=== PATIENT | male | born 1970 | race Caucasian/White ===

== ENCOUNTER 2017-02-19 11:16 | Inpatient (IN) | payer MEDICAID, OTHER ==
[~2017-02-19] VITALS: Ht 177.8 cm; Wt 95.3 kg
[2017-02-19] MEDS ORDERED: PARO10TA89 PO (11:42)
[2017-02-19] MEDS ORDERED: GABA-529 PO (11:42)
[2017-02-19] MEDS ORDERED: BUPR75 PO (11:42)
[2017-02-19] MEDS ORDERED: ARIP2 PO (11:42)
[2017-02-19 12:10] LABS: BASOPHILS # (AUTO) 0.02 K/uL (0.00-0.20); BASOPHILS % (AUTO) 0.5 % (0.0-2.0); EOSINOPHILS # (AUTO) 0.08 K/uL (0.00-0.70); EOSINOPHILS % (AUTO) 1.79 % (1.0-6.0); HEMATOCRIT 45.9 % (41-53); HEMOGLOBIN 15.6 g/dL (13.5-17.5); LYMPHOCYTES # (AUTO) 1.2 K/uL (1.0-4.8); LYMPHOCYTES % (AUTO) 26.1 % (22.0-44.0); MEAN CORPUSCULAR VOLUME 97 fL (80-100); MONOCYTES # (AUTO) 0.3 K/uL (0.1-1.0); NEUTROPHILS % (AUTO) 64.7 % (40.0-70.0); PLATELET COUNT (AUTO) 209 K/uL (150-450); RED BLOOD CELL COUNT(AUTO) 4.73 MIL/uL (4.50-5.90); RED CELL DISTRIBUTION WIDTH 14.7 % (11.5-14.5); WHITE BLOOD COUNT (AUTO) 4.6 K/uL (4.5-11.0)
[2017-02-19 12:25] LABS: ALANINE AMINOTRANSFERASE 59 U/L (12-78); ALBUMIN 4.1 g/dL (3.4-5.0); ANION GAP 13 mmol/L (8-16); ASPARTATE AMINOTRANSFERASE 46 U/L (15-37); BILIRUBIN,TOTAL 0.6 mg/dL (0.1-1.0); CALCIUM, TOTAL 9.3 mg/dL (8.8-10.5); CARBON DIOXIDE 22 mmol/L (22-29); CHLORIDE 105 mmol/L (98-107); CREATININE 1.13 mg/dL (0.60-1.30); GLOMERULAR FILTR. RATE CALC > 60 mL/min (>60); SODIUM SERUM 140 mmol/L (136-145); TOTAL PROTEIN, SERUM 8.3 g/dL (6.4-8.2); UREA NITROGEN, BLOOD 8 mg/dL (7-18)
[2017-02-19 12:28] LABS: POTASSIUM 2.7 mmol/L (3.5-5.1)
[2017-02-19] MEDS ORDERED: POTASSIUM CHLORIDE 20 MEQ ER TABLET PO ONE (12:45)
[2017-02-19] MEDS ORDERED: ZOLPIDEM TARTRATE 10 MG TABLET PO PRN (15:45)
[2017-02-19 16:09] LABS: CHOL/HDL RATIO 2.6 (4.2-7.3)
[2017-02-19] MEDS: LORazepam 2 MG TABLET PO PRN (19:49)
[2017-02-19] MEDS: HALOPERIDOL 5 MG TABLET PO PRN (19:49)
[2017-02-19 20:36] VITALS: BP 132/66
[2017-02-19] MEDS ORDERED: IBUPROFEN 600 MG TABLET PO PRN (22:15)
[2017-02-19] MEDS ORDERED: ACETAMINOPHEN 325 MG TABLET PO PRN (22:15)
[2017-02-20 08:00] VITALS: BP 113/72
[2017-02-20] MEDS ORDERED: POTASSIUM CHLORIDE 20 MEQ ER TABLET PO ONE (09:30)
[2017-02-20] MEDS ORDERED: CloNIDine HCL 0.1 MG TABLET PO PRN (09:45)
[2017-02-20 16:00] VITALS: BP 115/77
[2017-02-20] MEDS: HALOPERIDOL 5 MG TABLET PO PRN (17:44)
[2017-02-20] MEDS: LORazepam 2 MG TABLET PO PRN (17:44)
[2017-02-21 07:10] LABS: HEMOGLOBIN A1C 5.8 % (4.5-6.2)
[2017-02-21 07:12] LABS: ANION GAP 11 mmol/L (8-16); CARBON DIOXIDE 24 mmol/L (22-29); CHLORIDE 110 mmol/L (98-107); CHOL/HDL RATIO 2.9 (4.2-7.3); CREATININE 0.88 mg/dL (0.60-1.30); GLOMERULAR FILTR. RATE CALC > 60 mL/min (>60); POTASSIUM 3.5 mmol/L (3.5-5.1); SODIUM SERUM 145 mmol/L (136-145); UREA NITROGEN, BLOOD 11 mg/dL (7-18)
[2017-02-21 08:00] VITALS: BP 135/101
[2017-02-21] MEDS: BuPROPion HCL 75 MG TABLET PO SCH ×3 (08:57→16:45)
[2017-02-21] MEDS: ARIPiprazole 5 MG TABLET PO SCH (08:57)
[2017-02-21] MEDS: GABAPENTIN 100 MG CAPSULE PO SCH (08:57)
[2017-02-21] MEDS: PARoxetine HCL 10 MG TABLET PO SCH (08:58)
[2017-02-21 16:55] VITALS: BP 144/87
[2017-02-22 06:06] LABS: LYMPHS % FOR CD4 COUNT 24 %; LYMPHS ABS FOR CD4 COUNT 1.1 x10E3/uL (0.7-3.1); WBC FOR CD4 COUNT 4.4 x10E3/uL (3.4-10.8)
[2017-02-22 08:00] VITALS: BP 128/76
[2017-02-22] MEDS: BuPROPion HCL 75 MG TABLET PO SCH ×3 (08:57→17:40)
[2017-02-22] MEDS: ARIPiprazole 5 MG TABLET PO SCH (08:57)
[2017-02-22] MEDS: GABAPENTIN 100 MG CAPSULE PO SCH (08:57)
[2017-02-22] MEDS: PARoxetine HCL 10 MG TABLET PO SCH (08:57)
[2017-02-22] MEDS: LORazepam 2 MG TABLET PO PRN (09:47)
[2017-02-22 22:53] VITALS: BP 131/76
[2017-02-23] MEDS: LORazepam 2 MG TABLET PO PRN ×2 (06:41→12:19)
[2017-02-23] MEDS: ARIPiprazole 5 MG TABLET PO SCH (08:34)
[2017-02-23] MEDS: GABAPENTIN 100 MG CAPSULE PO SCH (08:34)
[2017-02-23] MEDS: PARoxetine HCL 10 MG TABLET PO SCH (08:34)
[2017-02-23] MEDS: BuPROPion HCL 75 MG TABLET PO SCH ×3 (08:34→17:12)
[2017-02-23 09:10] VITALS: BP 116/76
[2017-02-23 16:48] VITALS: BP 102/55
[2017-02-23] MEDS ORDERED: GABAPENTIN 100 MG CAPSULE PO SCH (21:00)
[2017-02-24 00:25] VITALS: BP 112/71
[2017-02-24 02:43] LABS: ABSOLUTE CD4 COUNT 296 /uL (359-1519); PERCENT CD4 CELLS 26.9 % (30.8-58.5)
[2017-02-24 06:22] LABS: HEPATITIS Bs ANTIGEN SCREEN P Negative (Negative); HEPATITIS C AB SCREEN <0.1 s/co ratio (0.0-0.9)
[2017-02-24] MEDS: LORazepam 2 MG TABLET PO PRN ×2 (06:44→11:03)
[2017-02-24] MEDS ORDERED: HYDROCORTISONE 2.5% 30 GM CREAM TP PRN (08:15)
[2017-02-24 08:16] VITALS: BP 131/81
[2017-02-24] MEDS ORDERED: ARIPiprazole 10 MG TABLET PO SCH (09:00)
[2017-02-24] MEDS ORDERED: BuPROPion HCL XL 150 MG ER TABLET PO SCH (09:00)
[2017-02-24] MEDS ORDERED: BuPROPion HCL 75 MG TABLET PO SCH (09:00)
[2017-02-24] MEDS ORDERED: ARIP10TA14 PO (11:46)
[2017-02-24] MEDS ORDERED: GABA-529 PO (11:46)
[2017-02-24] MEDS ORDERED: BUPR-93 PO (11:46)
[2017-02-24] MEDS ORDERED: PARO20TA24 PO (11:46)
[2017-02-24] MEDS ORDERED: BUPR75 PO (11:46)
[2017-02-24] MEDS ORDERED: PARoxetine HCL 20 MG TABLET PO SCH (21:00)
[2017-02-27 09:17] LABS: HIV CONFIRM? YES (NP)
[2017-03-06] MEDS ORDERED: GABAPENTIN 100 MG CAPSULE PO SCH (21:00)
[2017-03-07] MEDS ORDERED: ARIPiprazole 10 MG TABLET PO SCH (09:00)
[2017-03-07] MEDS ORDERED: BuPROPion HCL 150 MG SR TABLET PO SCH ×2 (09:00)
== END 2017-02-24 14:45 | disposition home or self-care (01) | DRG 751 ==
LOC: EEVIPCON 11:17 → EMS 11:17 → 3EI 17:14
PROVIDERS: ADMIT Psychiatry & Neurology Psychiatry; ATTEND Psychiatry & Neurology Psychiatry
DX: F29 Unspecified psychosis not due to a substance or known physiological condition (principal); R45.851 Suicidal ideations; F15.20 Other stimulant dependence, uncomplicated; I10 Essential (primary) hypertension; J45.909 Unspecified asthma, uncomplicated; F17.210 Nicotine dependence, cigarettes, uncomplicated; E87.6 Hypokalemia; F12.90 Cannabis use, unspecified, uncomplicated; Z91.5 Personal history of self-harm; Z79.899 Other long term (current) drug therapy; Z72.89 Other problems related to lifestyle
CPT/HCPCS: 80074; 82306; 82607; 82746; 83036; 83735; 84439; 86361; 86592; 86701; 86702; 87389; 99285; G0480

== ENCOUNTER 2017-03-06 03:11 | Inpatient (IN) | payer MEDICAID, OTHER ==
[~2017-03-06] VITALS: Ht 177.8 cm; Wt 93.8 kg
[~2017-03-06 03:11] MED LIST: ARIP10TA14 PO; ARIP2 PO; BUPR-93 PO; BUPR75 PO; GABA-529 PO; PARO10TA89 PO; PARO20TA24 PO
[2017-03-06] MEDS ORDERED: HALOPERIDOL 5 MG TABLET PO ONE (04:15)
[2017-03-06] MEDS ORDERED: LORazepam 2 MG TABLET PO ONE (04:15)
[2017-03-06] MEDS ORDERED: DiphenhydrAMINE HCL 25 MG CAPSULE PO ONE (04:15)
[2017-03-06 04:23] LABS: BASOPHILS # (AUTO) 0.04 K/uL (0.00-0.20); BASOPHILS % (AUTO) 0.8 % (0.0-2.0); EOSINOPHILS # (AUTO) 0.61 K/uL (0.00-0.70); EOSINOPHILS % (AUTO) 10.99 % (1.0-6.0); HEMATOCRIT 41.1 % (41-53); HEMOGLOBIN 13.7 g/dL (13.5-17.5); LYMPHOCYTES # (AUTO) 0.9 K/uL (1.0-4.8); LYMPHOCYTES % (AUTO) 16.6 % (22.0-44.0); MEAN CORPUSCULAR HEMOGLOBIN 32.4 pg (26.0-34.0); MEAN CORPUSCULAR HGB CONC 33.2 G/dL (31.0-37.0); MEAN CORPUSCULAR VOLUME 97 fL (80-100); MONOCYTES # (AUTO) 0.4 K/uL (0.1-1.0); MONOCYTES % (AUTO) 7.5 % (2.0-9.0); NEUTROPHILS # (AUTO) 3.6 K/uL (1.8-7.7); NEUTROPHILS % (AUTO) 64.2 % (40.0-70.0); PLATELET COUNT (AUTO) 193 K/uL (150-450); RED BLOOD CELL COUNT(AUTO) 4.22 MIL/uL (4.50-5.90); RED CELL DISTRIBUTION WIDTH 14.5 % (11.5-14.5); WHITE BLOOD COUNT (AUTO) 5.5 K/uL (4.5-11.0)
[2017-03-06 04:27] LABS: ALANINE AMINOTRANSFERASE 45 U/L (12-78); ALBUMIN 3.6 g/dL (3.4-5.0); ANION GAP 12 mmol/L (8-16); ASPARTATE AMINOTRANSFERASE 29 U/L (15-37); BILIRUBIN,TOTAL 0.5 mg/dL (0.1-1.0); CALCIUM, TOTAL 8.6 mg/dL (8.8-10.5); CARBON DIOXIDE 22 mmol/L (22-29); CHLORIDE 108 mmol/L (98-107); CREATININE 1.35 mg/dL (0.60-1.30); GLOMERULAR FILTR. RATE CALC 57 mL/min (>60); SODIUM SERUM 142 mmol/L (136-145); UREA NITROGEN, BLOOD 16 mg/dL (7-18)
[2017-03-06 04:29] LABS: POTASSIUM 2.9 mmol/L (3.5-5.1)
[2017-03-06] MEDS ORDERED: MAGNESIUM HYDROXIDE SUSPENSION 30 ML UDCUP PO PRN (04:45)
[2017-03-06] MEDS ORDERED: HALOPERIDOL 5 MG TABLET PO PRN (04:45)
[2017-03-06] MEDS ORDERED: POTASSIUM CHLORIDE 20 MEQ ER TABLET PO ONE (04:45)
[2017-03-06] MEDS ORDERED: ACETAMINOPHEN 325 MG TABLET PO PRN (04:45)
[2017-03-06] MEDS ORDERED: MAG HYDROX/AL HYDROX/SIMETH ES 30 ML SUSPENSION UDCUP PO PRN (04:45)
[2017-03-06 05:23] LABS: APPEARANCE,URINE CLEAR (CLEAR); GLUCOSE, URINE (UA) NEGATIVE (NEGATIVE); KETONES,URINE NEGATIVE (NEGATIVE); LEUKOCYTE ESTERASE ,URINE NEGATIVE (NEGATIVE); OCCULT BLOOD,URINE NEGATIVE (NEGATIVE); PROTEIN,URINE POS 1+ (NEGATIVE)
[2017-03-06 05:36] LABS: ADD UA MICROSCOPIC NO
[2017-03-06 05:44] VITALS: BP 137/84
[2017-03-06] MEDS ORDERED: FentaNYL CITRATE-PF 100 MCG/2 ML VIAL ONE (07:14)
[2017-03-06] MEDS ORDERED: LIDOCAINE HCL/PF 1% 30 ML VIAL ONE (07:15)
[2017-03-06] MEDS ORDERED: MIDAZOLAM HCL 2 MG/2 ML VIAL ONE (07:15)
[2017-03-06] MEDS ORDERED: SODIUM BICARBONATE 50 MEQ/50 ML VIAL ONE (07:15)
[2017-03-06] MEDS ORDERED: IOHEXOL 300 MG/ML 150 ML VIAL ONE (07:15)
[2017-03-06] MEDS ORDERED: HEPARIN SODIUM 1000 UNITS/NS 1,000 ML ONE (07:16)
[2017-03-06 07:52] LABS: CHOL/HDL RATIO 3.2 (4.2-7.3)
[2017-03-06 08:31] VITALS: BP 110/67
[2017-03-06 16:04] VITALS: BP 121/73
[2017-03-06] MEDS ORDERED: PARoxetine HCL 10 MG TABLET PO SCH (21:00)
[2017-03-06] MEDS: PARoxetine HCL 20 MG TABLET PO SCH (21:25)
[2017-03-06] MEDS: GABAPENTIN 100 MG CAPSULE PO SCH (21:25)
[2017-03-07 08:04] VITALS: BP 126/93
[2017-03-07] MEDS ORDERED: BuPROPion HCL 150 MG SR TABLET PO SCH (09:00)
[2017-03-07] MEDS: BuPROPion HCL 150 MG SR TABLET PO SCH ×2 (09:37→17:37)
[2017-03-07] MEDS: ARIPiprazole 10 MG TABLET PO SCH (09:37)
[2017-03-07 18:49] VITALS: BP 119/76
[2017-03-07] MEDS: GABAPENTIN 100 MG CAPSULE PO SCH (20:59)
[2017-03-07] MEDS: PARoxetine HCL 20 MG TABLET PO SCH (20:59)
[2017-03-08 06:14] LABS: ANION GAP 6 mmol/L (8-16); CALCIUM, TOTAL 8.3 mg/dL (8.8-10.5); CARBON DIOXIDE 27 mmol/L (22-29); CHLORIDE 106 mmol/L (98-107); CREATININE 1.04 mg/dL (0.60-1.30); GLOMERULAR FILTR. RATE CALC > 60 mL/min (>60); POTASSIUM 3.4 mmol/L (3.5-5.1); SODIUM SERUM 139 mmol/L (136-145); UREA NITROGEN, BLOOD 13 mg/dL (7-18)
[2017-03-08] MEDS: BuPROPion HCL 150 MG SR TABLET PO SCH ×2 (08:24→16:51)
[2017-03-08 08:25] VITALS: BP 133/90
[2017-03-08] MEDS: ARIPiprazole 10 MG TABLET PO SCH (08:25)
[2017-03-08] MEDS ORDERED: POTASSIUM CHLORIDE 20 MEQ ER TABLET PO ONE (10:15)
[2017-03-08 16:04] VITALS: BP 138/82
[2017-03-08] MEDS: PARoxetine HCL 20 MG TABLET PO SCH (20:41)
[2017-03-08] MEDS: GABAPENTIN 100 MG CAPSULE PO SCH (20:41)
[2017-03-09 07:08] LABS: ANION GAP 9 mmol/L (8-16); CALCIUM, TOTAL 8.7 mg/dL (8.8-10.5); CARBON DIOXIDE 25 mmol/L (22-29); CHLORIDE 107 mmol/L (98-107); CREATININE 0.92 mg/dL (0.60-1.30); GLOMERULAR FILTR. RATE CALC > 60 mL/min (>60); POTASSIUM 3.5 mmol/L (3.5-5.1); SODIUM SERUM 141 mmol/L (136-145); UREA NITROGEN, BLOOD 13 mg/dL (7-18)
[2017-03-09 08:04] VITALS: BP 136/79
[2017-03-09] MEDS: BuPROPion HCL 150 MG SR TABLET PO SCH ×2 (08:13→16:45)
[2017-03-09] MEDS: ARIPiprazole 10 MG TABLET PO SCH (08:13)
[2017-03-09] MEDS: LORazepam 2 MG TABLET PO PRN (14:48)
[2017-03-09 16:35] VITALS: BP 110/57
[2017-03-09] MEDS: GABAPENTIN 100 MG CAPSULE PO SCH (21:12)
[2017-03-09] MEDS: PARoxetine HCL 20 MG TABLET PO SCH (21:12)
[2017-03-10 07:08] LABS: ANION GAP 8 mmol/L (8-16); CALCIUM, TOTAL 8.9 mg/dL (8.8-10.5); CARBON DIOXIDE 26 mmol/L (22-29); CHLORIDE 103 mmol/L (98-107); CREATININE 0.83 mg/dL (0.60-1.30); GLOMERULAR FILTR. RATE CALC > 60 mL/min (>60); POTASSIUM 3.5 mmol/L (3.5-5.1); SODIUM SERUM 137 mmol/L (136-145); UREA NITROGEN, BLOOD 12 mg/dL (7-18)
[2017-03-10] MEDS: BuPROPion HCL 150 MG SR TABLET PO SCH ×2 (08:33→17:08)
[2017-03-10] MEDS: ARIPiprazole 10 MG TABLET PO SCH (08:33)
[2017-03-10 08:39] VITALS: BP 113/68
[2017-03-10] MEDS: LORazepam 2 MG TABLET PO PRN (11:05)
[2017-03-10 18:44] VITALS: BP 124/78
[2017-03-10] MEDS: PARoxetine HCL 20 MG TABLET PO SCH (21:22)
[2017-03-10] MEDS: GABAPENTIN 100 MG CAPSULE PO SCH (21:22)
[2017-03-11 05:27] VITALS: BP 138/88
[2017-03-11 09:00] VITALS: BP 140/96
[2017-03-11] MEDS: BuPROPion HCL 150 MG SR TABLET PO SCH ×2 (09:48→17:00)
[2017-03-11] MEDS: ARIPiprazole 15 MG TABLET PO SCH (09:48)
[2017-03-11] MEDS: LORazepam 2 MG TABLET PO PRN (09:49)
[2017-03-11 16:05] VITALS: BP 131/91
[2017-03-11] MEDS: PARoxetine HCL 20 MG TABLET PO SCH (20:27)
[2017-03-11] MEDS: GABAPENTIN 100 MG CAPSULE PO SCH (20:27)
[2017-03-11] MEDS: ZOLPIDEM TARTRATE 10 MG TABLET PO PRN (22:00)
[2017-03-12] MEDS: ARIPiprazole 15 MG TABLET PO SCH (08:57)
[2017-03-12] MEDS: BuPROPion HCL 150 MG SR TABLET PO SCH ×2 (08:57→16:46)
[2017-03-12] MEDS: LORazepam 2 MG TABLET PO PRN ×2 (08:58→16:46)
[2017-03-12 09:00] VITALS: BP 124/72
[2017-03-12 18:11] VITALS: BP 132/84
[2017-03-12] MEDS: GABAPENTIN 100 MG CAPSULE PO SCH (21:13)
[2017-03-12] MEDS: ZOLPIDEM TARTRATE 10 MG TABLET PO PRN (21:13)
[2017-03-12] MEDS: PARoxetine HCL 20 MG TABLET PO SCH (21:13)
[2017-03-13] MEDS: BuPROPion HCL 150 MG SR TABLET PO SCH ×2 (08:27→16:20)
[2017-03-13] MEDS ORDERED: ARIPiprazole 10 MG TABLET PO SCH (09:00)
[2017-03-13 09:35] VITALS: BP 131/87
[2017-03-13] MEDS: LORazepam 2 MG TABLET PO PRN ×2 (10:14→16:59)
[2017-03-13 16:00] VITALS: BP 136/80
[2017-03-13] MEDS ORDERED: BUPR150SR PO (18:50)
[2017-03-13] MEDS ORDERED: GABA-529 PO (18:51)
[2017-03-13] MEDS ORDERED: ARIP10TA14 PO (18:51)
[2017-03-13] MEDS ORDERED: PARO20TA24 PO (18:51)
== END 2017-03-13 20:00 | disposition home or self-care (01) | DRG 750 ==
LOC: EMS 03:12 → 3EI 04:26
PROVIDERS: ADMIT Psychiatry & Neurology Psychiatry; ATTEND Psychiatry & Neurology Psychiatry
DX: F25.0 Schizoaffective disorder, bipolar type (principal); N17.9 Acute kidney failure, unspecified; F15.20 Other stimulant dependence, uncomplicated; J45.909 Unspecified asthma, uncomplicated; I10 Essential (primary) hypertension
CPT/HCPCS: 87081; 99285; G0480; J1644; J2250; J3010; J3490; Q9967

== ENCOUNTER 2017-04-17 05:44 | Emergency (ER) | payer MEDICAID, OTHER ==
[~2017-04-17] VITALS: Ht 172.7 cm; Wt 90.0 kg
[~2017-04-17 05:44] MED LIST changes: +BUPR150SR PO
[2017-04-17 06:53] LABS: BASOPHILS % (AUTO) 0.6 % (0.0-2.0); EOSINOPHILS % (AUTO) 1.5 % (1.0-6.0); HEMATOCRIT 40.7 % (41-53); LYMPHOCYTES # (AUTO) 1.4 K/uL (1.0-4.8); LYMPHOCYTES % (AUTO) 28.6 % (22.0-44.0); MEAN CORPUSCULAR HEMOGLOBIN 32.4 pg (26.0-34.0); MEAN CORPUSCULAR HGB CONC 34.5 G/dL (31.0-37.0); MEAN CORPUSCULAR VOLUME 94 fL (80-100); MONOCYTES # (AUTO) 0.4 K/uL (0.1-1.0); MONOCYTES % (AUTO) 8.2 % (2.0-9.0); NEUTROPHILS % (AUTO) 61.1 % (40.0-70.0); PLATELET COUNT (AUTO) 189 K/uL (150-450); RED BLOOD CELL COUNT(AUTO) 4.34 MIL/uL (4.50-5.90); RED CELL DISTRIBUTION WIDTH 13.6 % (11.5-14.5); WHITE BLOOD COUNT (AUTO) 4.9 K/uL (4.5-11.0)
[2017-04-17 07:19] LABS: ANION GAP 7 mmol/L (8-16); CALCIUM, TOTAL 9.3 mg/dL (8.8-10.5); CARBON DIOXIDE 28 mmol/L (22-29); CHLORIDE 106 mmol/L (98-107); CREATININE 1.41 mg/dL (0.60-1.30); GLOMERULAR FILTR. RATE CALC 54 mL/min (>60); POTASSIUM 3.3 mmol/L (3.5-5.1); SODIUM SERUM 141 mmol/L (136-145); UREA NITROGEN, BLOOD 11 mg/dL (7-18)
[2017-04-17 07:21] LABS: ALANINE AMINOTRANSFERASE 35 U/L (12-78); ALBUMIN 3.8 g/dL (3.4-5.0); ASPARTATE AMINOTRANSFERASE 29 U/L (15-37); BILIRUBIN,TOTAL 0.5 mg/dL (0.1-1.0); TOTAL PROTEIN, SERUM 8.1 g/dL (6.4-8.2)
[2017-04-17] MEDS ORDERED: LORazepam 1 MG TABLET PO ONE (07:30)
[2017-04-17] MEDS ORDERED: DiphenhydrAMINE HCL 25 MG CAPSULE PO ONE (07:30)
[2017-04-17] MEDS ORDERED: HALOPERIDOL 5 MG TABLET PO ONE (07:30)
[2017-04-17 08:40] VITALS: BP 144/85
== END 2017-04-17 08:49 | disposition home or self-care (01) ==
LOC: EMS 05:46
DX: F25.9 Schizoaffective disorder, unspecified (principal); F15.20 Other stimulant dependence, uncomplicated; J45.909 Unspecified asthma, uncomplicated; I10 Essential (primary) hypertension; F17.210 Nicotine dependence, cigarettes, uncomplicated
CPT/HCPCS: 36415; 80053; 80307; 85025; 99285; G0480